=== PATIENT | female | born 1940 | race Caucasian/White ===

== ENCOUNTER 2017-11-02 10:36 | Inpatient (IN) ==
[2017-11-02] MEDS: *HR* HYDROcodone/Acet 5/325 mg TABLET PO PRN (19:39)
[2017-11-03] MEDS: *HR* HYDROcodone/Acet 5/325 mg TABLET PO PRN ×4 (01:57→21:00)
[2017-11-03 05:26] LABS: Basophils % 0.1 %; Hematocrit 26.8 % (35.3-44.9); Hemoglobin 8.5 g/dL (11.5-15.4); Immature Granulocytes % 0.8 % (0-4); Lymphocytes # 1.6 K/mcL (0.6-4.6); Lymphocytes % 13.5 %; Mean Corpuscular HGB Conc 31.7 g/dL (31.6-35.5); Mean Corpuscular Hemoglobin 29.3 pg (28.0-33.3); Mean Corpuscular Volume 92.4 fL (83.0-100.0); Monocytes # 0.6 K/mcL (0.0-1.3); Monocytes % 5.3 %; Neutrophils # 9.5 K/mcL (1.6-8.9); Platelet Count 306 K/mcL (140-400); Red Cell Distribution Width 15.1 % (11.5-14.5); Segmented Neutrophils % 80.3 %
[2017-11-03 05:30] LABS: INR 1.2; Prothrombin Time 13.4 Seconds (9.4-12.1)
[2017-11-03 05:33] LABS: Activated Partial Thrombo Time 29.6 Seconds (26.0-36.0)
[2017-11-03 05:47] LABS: BUN/Creatinine Ratio 27 (6-26); Blood Urea Nitrogen 22 mg/dL (7-20); Calcium 8.5 mg/dL (8.6-10.8); Carbon Dioxide 26 mEq/L (19-29); Chloride 106 mEq/L (98-109); Glucose 114 mg/dL (70-99); Osmolality,Calculated 290 (280-300); Potassium 4.6 mEq/L (3.5-4.5); Sodium 138 mEq/L (136-145); eGFR For African Americans > 60 (> 60); eGFR For Non-African Americans > 60 (> 60)
[2017-11-03] MEDS: Aspirin Enteric Coated 81 MG Tablet PO SCH (08:55)
[2017-11-03] MEDS: predniSONE 20 MG TABLET PO SCH (08:55)
[2017-11-03] MEDS: amLODIPine 5 MG TABLET PO SCH (08:56)
[2017-11-03] MEDS: Famotidine 20 MG TABLET PO SCH (08:56)
[2017-11-03] MEDS: Lisinopril 20 MG TABLET PO SCH (08:56)
[2017-11-03] MEDS: Isosorbide MONOnitrate (24 HR) 30 MG TAB.ER.24H PO SCH (08:57)
--- NOTE | 2017-11-03 13:12 | Internal Med History&Physical ---
Date of Encounter: 11/03/17 Time of Encounter: 13:00 Assessment and Plan (1) Physical deconditioning Current visit: Yes Status: Acute Continue working with our therapists. (2) PNA (pneumonia) Current visit: No Status: Acute Continue to complete prescribed course of Augmentin. Will add incentive spirometry. Qualifiers: Pneumonia type: due to Pneumococcus Laterality: right Lung location: lower lobe of lung Qualified Code(s): J13 - Pneumonia due to Streptococcus pneumoniae (3) Normocytic anemia Current visit: Yes Status: Acute Currently asymptomatic and not at transfusion threshold yet. - Will trend CBC. Will obtain FOBT. (4) HLD (hyperlipidemia) Current visit: Yes Status: Chronic Continue simvastatin. Qualifiers: Hyperlipidemia type: unspecified Qualified Code(s): E78.5 - Hyperlipidemia , unspecified (5) Essential hypertension Current visit: No Status: Chronic Continue lisinopril, Imdur, and metoprolol. (6) Afib Current visit: No Status: Chronic Continue metprolol and rivaroxaban. Qualifiers: Atrial fibrillation type: chronic Qualified Code(s): I48.2 - Chronic atrial fibrillation Internal Medicine - H&P: HPI Chief complaint: Physical deconditioning Admitted From: Hospital to Hospital Transfer Plans for Post Hospital Care: Home History of present illness: Ms. Rico is a 77 year old female transferred to form [facility] on 11/02/2017 for physical deconditioning after being admitted for PNA. At the time of this encounter, the patient feels much better and reports that her cough has significant improved. Patient report no fever, chills, CP, SOB, n/ v/d/c, dysuria, seizure, skin rash, bruising out of the ordinary, or bleeding symptoms. Past Med Surg Social Fam HX - Past Medical History Medical history: atrial fibrillation, coronary artery disease, CVA, hypertension , myocardial infarction Psychiatric history: no psych history - Past Surgical History Surgical History: carotid endarterectomy, orthopedic, other - Social History Smoking Status: Former smoker Smokeless Tobacco Status: No Alcohol use: none Drug use: none - Family History Father Hx Family Cardiac Disorders: Yes (Coronary artery disease) Internal Medicine - H&P: Meds Aspirin Enteric Coated [Aspirin EC] 81 mg PO DAILY 10/23/17 [History] HYDROcodone/Acet 5/325 mg [[place] 5-325 mg] 1 tab PO Q6H PRN 10/23/17 [History] Isosorbide MONOnitrate (24 HR) [Imdur] 30 mg PO DAILY 10/23/17 [History] Oxybutynin Chloride [Ditropan Xl] 5 mg PO DAILY 10/23/17 [History] Pravastatin Sodium [Pravachol] 20 mg PO DAILY 10/23/17 [History] Ranitidine HCl [Heartburn Relief] 150 mg PO BID 10/23/17 [History] Rivaroxaban [Xarelto] 15 mg PO 1700 #30 tablet 10/28/17 [Rx] amLODIPine [Norvasc] 10 mg PO DAILY #30 tablet 10/28/17 [Rx] predniSONE [PredniSONE] 40 mg PO DAILY@0800 #3 tablet 10/28/17 [Rx] Lisinopril [Zestril] 40 mg PO DAILY 10/29/17 [History] Metoprolol [Lopressor] 12.5 mg PO BID #30 tablet 11/02/17 [Rx] 3 Allergy/AdvReac Type Severity Reaction Status Date / Time No Known Allergies Allergy Verified 10/29/17 14:50 All Systems PM: A 10-system review of systems was performed and is negative for pertinent findings except as documented above in the HPI. Review of systems: 10 systems reviewed and (-) other than mentioned per HPI. - Constitutional Vitals: Temp Pulse Resp BP Pulse Ox 98.9 F 64 18 116/76 95 11/03/17 07:31 11/03/17 07:31 11/03/17 07:31 11/03/17 07:31 11/03/17 07:31 Exam: Gen: A&Ox3, NAD. HEENT: NCAT. Neck: No palpable lymphadenopathy or thyromegaly. CV: RRR, S1S2. 2/6, systolic murmur appreciated. Capillary refill < 2 seconds. Pulm: Adequate air exchange with mild, right-basilar crackles. No wheezing or rhonchi. Abd: (+)BS. NDNT. Neuro: Global weakness, otherwise non-focal. Skin: No rash. Ext: No pitting edema. Internal Med - H&P Results - Labs CBC & Chem 7: 11/03/17 05:15 11/03/17 05:07 Labs: Short CBC 11/03/17 Range/Units 05:15 WBC 11.8 H (4.3-11.1) K/mcL Hgb 8.5 L (11.5-15.4) g/dL Hct 26.8 L (35.3-44.9) % Plt Count 306 (140-400) K/mcL Neutrophils # 9.5 H (1.6-8.9) K/mcL BMP 11/03/17 05:07 Sodium 138 Potassium 4.6 H Chloride 106 Carbon Dioxide 26 BUN 22 H Creatinine 0.81 Glucose 114 H Calcium 8.5 L
[2017-11-03] MEDS: *HR* Rivaroxaban 15 MG TABLET PO SCH (17:34)
[2017-11-04 06:04] LABS: Basophils % 0.1 %; Hematocrit 27.7 % (35.3-44.9); Hemoglobin 8.9 g/dL (11.5-15.4); Immature Granulocytes % 0.7 % (0-4); Lymphocytes # 1.6 K/mcL (0.6-4.6); Lymphocytes % 11.4 %; Mean Corpuscular HGB Conc 32.1 g/dL (31.6-35.5); Mean Corpuscular Hemoglobin 29.9 pg (28.0-33.3); Mean Platelet Volume 11.4 fL (9.4-12.4); Monocytes # 0.7 K/mcL (0.0-1.3); Monocytes % 5.3 %; Platelet Count 329 K/mcL (140-400); Red Blood Count 2.98 M/mcL (3.82-4.97); Red Cell Distribution Width 15.3 % (11.5-14.5); Segmented Neutrophils % 82.5 %
[2017-11-04 06:05] LABS: Neutrophils # 11.4 K/mcL (1.6-8.9)
[2017-11-04] MEDS: *HR* HYDROcodone/Acet 5/325 mg TABLET PO PRN ×3 (06:59→19:03)
[2017-11-04] MEDS: Lisinopril 20 MG TABLET PO SCH (07:56)
[2017-11-04] MEDS: predniSONE 20 MG TABLET PO SCH (07:56)
[2017-11-04] MEDS: Isosorbide MONOnitrate (24 HR) 30 MG TAB.ER.24H PO SCH (07:56)
[2017-11-04] MEDS: Famotidine 20 MG TABLET PO SCH (07:56)
[2017-11-04] MEDS: Aspirin Enteric Coated 81 MG Tablet PO SCH (07:56)
[2017-11-04] MEDS: amLODIPine 5 MG TABLET PO SCH (07:56)
--- NOTE | 2017-11-04 12:14 | Internal Med Progress Note ---
Date of Encounter: 11/04/17 Time of Encounter: 12:00 - Assessment and plan (1) Physical deconditioning Current Visit: Yes Status: Acute Assessment and plan: Continue working with our therapists. (2) PNA (pneumonia) Current Visit: Yes Status: Acute Assessment and plan: Continue to complete prescribed course of Augmentin. Lungs are clear today. Continue incentive spirometry. Qualifiers: Pneumonia type: due to Pneumococcus Laterality: right Lung location: lower lobe of lung Qualified Code(s): J13 - Pneumonia due to Streptococcus pneumoniae (3) Normocytic anemia Current Visit: Yes Status: Acute Assessment and plan: Currently asymptomatic and not at transfusion threshold yet. - Will trend CBC. Will obtain FOBT. (4) HLD (hyperlipidemia) Current Visit: Yes Status: Chronic Assessment and plan: Continue simvastatin. Qualifiers: Hyperlipidemia type: unspecified Qualified Code(s): E78.5 - Hyperlipidemia , unspecified (5) Essential hypertension Current Visit: Yes Status: Chronic Assessment and plan: BP well-controlled. Continue lisinopril, Imdur, and metoprolol. (6) Afib Current Visit: Yes Status: Chronic Assessment and plan: Continue metprolol and rivaroxaban. Qualifiers: Atrial fibrillation type: chronic Qualified Code(s): I48.2 - Chronic atrial fibrillation (7) Chronic low back pain Current Visit: Yes Status: Chronic Assessment and plan: Will increase Mobile to 2 tabs q6h prn. Continue to monitor. Qualifiers: Back pain laterality: right Sciatica presence: unspecified whether sciatica present Qualified Code(s): M54.5 - Low back pain; G89.29 - Other chronic pain; G89.29 - Other chronic pain - Time Spent With Patient less than 15 minutes - Subjective Interval history: Reports having her chronic LBP and that the pain has not really been controlled by the currently ordered hydrocodone/acetaminophen. Upon further questioning, the patient states she takes 2 tabs of hydrocodone/acetaminophen q6h prn at home , but has only been getting 1 tab q6h prn here. - Constitutional Vitals: Temp Pulse Resp BP Pulse Ox 98.2 F 68 16 116/72 95 11/04/17 07:50 11/04/17 07:50 11/04/17 07:50 11/04/17 07:50 11/04/17 07:50 Exam: Gen: A&Ox3, NAD. HEENT: NCAT. Neck: No palpable lymphadenopathy or thyromegaly. CV: RRR, S1S2. 2/6, systolic murmur appreciated. Capillary refill < 2 seconds. Pulm: CTAB. Abd: (+)BS. NDNT. Neuro: Global weakness, otherwise non-focal. Skin: No rash. Ext: No pitting edema. Internal Medicine: Result - Labs CBC & Chem 7: 11/04/17 05:50 11/03/17 05:07 Labs: Short CBC 11/04/17 Range/Units 05:50 WBC 13.8 H (4.3-11.1) K/mcL Hgb 8.9 L (11.5-15.4) g/dL Hct 27.7 L (35.3-44.9) % Plt Count 329 (140-400) K/mcL Neutrophils # 11.4 H (1.6-8.9) K/mcL - ABG Interpretation ABG results: PT/INR, D-dimer PT 13.4 Seconds (9.4-12.1) H 11/03/17 05:07 Consult Discharge Plan - Plan Referrals: Gaby Santillan [Primary Care Provider] -
[2017-11-04] MEDS: *HR* Rivaroxaban 15 MG TABLET PO SCH (16:27)
[2017-11-05] MEDS: *HR* HYDROcodone/Acet 5/325 mg TABLET PO PRN ×4 (03:35→22:57)
[2017-11-05 05:22] LABS: Basophils % 0.1 %; Hematocrit 25.3 % (35.3-44.9); Immature Granulocytes % 0.7 % (0-4); Lymphocytes # 1.5 K/mcL (0.6-4.6); Lymphocytes % 11.2 %; Mean Corpuscular HGB Conc 31.6 g/dL (31.6-35.5); Mean Corpuscular Volume 94.8 fL (83.0-100.0); Mean Platelet Volume 11.5 fL (9.4-12.4); Monocytes # 0.8 K/mcL (0.0-1.3); Monocytes % 5.6 %; Platelet Count 306 K/mcL (140-400); Red Blood Count 2.67 M/mcL (3.82-4.97); Red Cell Distribution Width 15.5 % (11.5-14.5); Segmented Neutrophils % 82.4 %
[2017-11-05 05:27] LABS: Neutrophils # 11.2 K/mcL (1.6-8.9)
[2017-11-05 05:35] LABS: BUN/Creatinine Ratio 31 (6-26); Blood Urea Nitrogen 25 mg/dL (7-20); Calcium 8.4 mg/dL (8.6-10.8); Carbon Dioxide 28 mEq/L (19-29); Chloride 106 mEq/L (98-109); Glucose 117 mg/dL (70-99); Osmolality,Calculated 295 (280-300); Potassium 5.2 mEq/L (3.5-4.5); Sodium 140 mEq/L (136-145); eGFR For African Americans > 60 (> 60); eGFR For Non-African Americans > 60 (> 60)
[2017-11-05] MEDS: Lisinopril 20 MG TABLET PO SCH (08:09)
[2017-11-05] MEDS: predniSONE 20 MG TABLET PO SCH (08:09)
[2017-11-05] MEDS: Famotidine 20 MG TABLET PO SCH (08:10)
[2017-11-05] MEDS: amLODIPine 5 MG TABLET PO SCH (08:10)
[2017-11-05] MEDS: Isosorbide MONOnitrate (24 HR) 30 MG TAB.ER.24H PO SCH (08:10)
[2017-11-05] MEDS: Aspirin Enteric Coated 81 MG Tablet PO SCH (08:10)
--- NOTE | 2017-11-05 12:29 | Internal Med Progress Note ---
Date of Encounter: 11/05/17 Time of Encounter: 12:26 - Assessment and plan (1) PNA (pneumonia) Current Visit: Yes Status: Acute Assessment and plan: Continue to complete prescribed course of Augmentin. Lungs are clear, but noted slight bibasilar rales. He denies any dyspnea or chest discomforts. Continue incentive spirometry. Qualifiers: Pneumonia type: due to unspecified organism Laterality: right Lung location: lower lobe of lung Qualified Code(s): J18.1 - Lobar pneumonia, unspecified organism (2) Essential hypertension Current Visit: Yes Status: Chronic Assessment and plan: Vital signs are stable. We will continue with current medications (3) CVA (cerebral vascular accident) Current Visit: No Status: Chronic Assessment and plan: No acute issues. Patient states that CVA was remote and currently shows no neurological deficits secondary to CVA. Qualifiers: CVA mechanism: unspecified Qualified Code(s): I63.9 - Cerebral infarction, unspecified - Subjective Interval history: Patient appears relaxed and currently denies any shortness of breath or chest discomforts. Patient denies any fever/chills or productive cough. - Constitutional Vitals: Temp Pulse Resp BP Pulse Ox 98.4 F 69 16 121/66 94 11/05/17 07:36 11/05/17 07:36 11/05/17 07:36 11/05/17 07:36 11/05/17 07:36 General appearance: Present: A&O X 3, pleasant, no acute distress - Head Head exam: Present: atraumatic, normocephalic - Eye Eye exam: Present: PERRL, conjuntiva pink, sclera anicteric Pupils: Present: PERRL - Neck Neck exam general surgery: Present: supple, trachea midline. Absent: lymphadenopathy - Respiratory Respiratory exam: Present: rales. Absent: accessory muscle use, rhonchi, wheezes Additional comments: Lungs are clear throughout refills and diminished bases. Fine rales heard to posterior bibasilar noriega. Respiratory effort appears relaxed - Cardiovascular Cardiovascular exam: Present: RRR, +S1, +S2. Absent: diastolic murmur, gallop, rubs, systolic murmur - GI/Abdominal GI/Abdominal exam: Present: normal bowel sounds, soft, no peritoneal signs. Absent: distended, tenderness - Extremities Exam Extremities exam: Present: warm, radial pulses palpable and symmetrical. Absent : calf tenderness, cyanotic, pedal edema - Neurological Exam Neurological exam: Present: CN II-XII intact, oriented X3, no focal deficits. Absent: pronater drift, facial droop, speech deficit - Skin Skin exam: Present: dry, intact Internal Medicine: Result - Labs CBC & Chem 7: 11/05/17 04:55 11/05/17 04:55 Labs: Short CBC 11/05/17 Range/Units 04:55 WBC 13.6 H (4.3-11.1) K/mcL Hgb 8.0 L (11.5-15.4) g/dL Hct 25.3 L (35.3-44.9) % Plt Count 306 (140-400) K/mcL Neutrophils # 11.2 H (1.6-8.9) K/mcL BMP 11/05/17 04:55 Sodium 140 Potassium 5.2 H Chloride 106 Carbon Dioxide 28 BUN 25 H Creatinine 0.80 Glucose 117 H Calcium 8.4 L - ABG Interpretation ABG results: PT/INR, D-dimer PT 13.4 Seconds (9.4-12.1) H 11/03/17 05:07 Consult Discharge Plan - Plan Referrals: Gaby Santilaln [Primary Care Provider] -
[2017-11-05] MEDS: *HR* Rivaroxaban 15 MG TABLET PO SCH (16:54)
[2017-11-06] MEDS: *HR* HYDROcodone/Acet 5/325 mg TABLET PO PRN ×4 (05:22→23:12)
[2017-11-06] MEDS: Lisinopril 20 MG TABLET PO SCH (08:12)
[2017-11-06] MEDS: predniSONE 20 MG TABLET PO SCH (08:13)
[2017-11-06] MEDS: amLODIPine 5 MG TABLET PO SCH (08:13)
[2017-11-06] MEDS: Aspirin Enteric Coated 81 MG Tablet PO SCH (08:13)
[2017-11-06] MEDS: Famotidine 20 MG TABLET PO SCH (08:13)
[2017-11-06] MEDS: Isosorbide MONOnitrate (24 HR) 30 MG TAB.ER.24H PO SCH (08:15)
--- NOTE | 2017-11-06 13:32 | Internal Med Progress Note ---
Date of Encounter: 11/06/17 Time of Encounter: 13:29 - Assessment and plan (1) PNA (pneumonia) Current Visit: Yes Status: Acute Assessment and plan: Continue to complete prescribed course of Augmentin. Lungs are clear, but noted slight bibasilar rales. She denies any dyspnea or chest discomforts. Continue incentive spirometry. Continue on current medications and bronchodilators Qualifiers: Pneumonia type: due to unspecified organism Laterality: right Lung location: lower lobe of lung Qualified Code(s): J18.1 - Lobar pneumonia, unspecified organism (2) Essential hypertension Current Visit: Yes Status: Chronic Assessment and plan: Vital signs are stable. We will continue with current medications (3) CVA (cerebral vascular accident) Current Visit: No Status: Chronic Assessment and plan: No acute issues. Patient states that CVA was remote and currently shows no neurological deficits secondary to CVA. Qualifiers: CVA mechanism: unspecified Qualified Code(s): I63.9 - Cerebral infarction, unspecified - Subjective Interval history: Patient appears relaxed and currently denies any shortness of breath or chest discomforts. Patient denies any fever/chills or productive cough. Pt noted to be cachectic and continues on supplements per recommendations of dietary - Constitutional Vitals: Temp Pulse Resp BP Pulse Ox 98.8 F 79 16 107/65 94 11/06/17 07:00 11/06/17 07:00 11/06/17 07:00 11/06/17 07:00 11/06/17 07:00 General appearance: Present: A&O X 3, pleasant, no acute distress - Head Head exam: Present: atraumatic, normocephalic - Eye Eye exam: Present: PERRL, conjuntiva pink, sclera anicteric Pupils: Present: PERRL - Neck Neck exam general surgery: Present: supple, trachea midline. Absent: lymphadenopathy - Respiratory Respiratory exam: Present: CTAB. Absent: accessory muscle use, rales, rhonchi, wheezes - Cardiovascular Cardiovascular exam: Present: RRR, +S1, +S2. Absent: diastolic murmur, gallop, rubs, systolic murmur - GI/Abdominal GI/Abdominal exam: Present: normal bowel sounds, soft, no peritoneal signs. Absent: distended, tenderness - Extremities Exam Extremities exam: Present: warm, radial pulses palpable and symmetrical. Absent : calf tenderness, cyanotic, pedal edema - Neurological Exam Neurological exam: Present: CN II-XII intact, oriented X3, no focal deficits. Absent: pronater drift, facial droop, speech deficit - Skin Skin exam: Present: dry, intact Internal Medicine: Result - Labs CBC & Chem 7: 11/05/17 04:55 11/05/17 04:55 - ABG Interpretation ABG results: PT/INR, D-dimer PT 13.4 Seconds (9.4-12.1) H 11/03/17 05:07 Consult Discharge Plan - Plan Referrals: Ethan Celaya, TRANSPORT COORDINATOR [Advanced Practice Nurse] - 11/29/17 2:30 pm (KINDERGARTNER, cardio) Gaby Santillan [Primary Care Provider] -
[2017-11-06] MEDS: *HR* Rivaroxaban 15 MG TABLET PO SCH (16:52)
[2017-11-07] MEDS: *HR* HYDROcodone/Acet 5/325 mg TABLET PO PRN ×3 (05:39→18:39)
[2017-11-07] MEDS: Isosorbide MONOnitrate (24 HR) 30 MG TAB.ER.24H PO SCH (07:54)
[2017-11-07] MEDS: amLODIPine 5 MG TABLET PO SCH (07:54)
[2017-11-07] MEDS: Aspirin Enteric Coated 81 MG Tablet PO SCH (07:55)
[2017-11-07] MEDS: Lisinopril 20 MG TABLET PO SCH (07:55)
[2017-11-07] MEDS: predniSONE 20 MG TABLET PO SCH (07:55)
[2017-11-07] MEDS: Famotidine 20 MG TABLET PO SCH (07:55)
--- NOTE | 2017-11-07 14:02 | Internal Med Progress Note ---
Date of Encounter: 11/07/17 Time of Encounter: 13:59 - Assessment and plan (1) Essential hypertension Current Visit: Yes Status: Chronic Assessment and plan: Vital signs are stable. We will continue with current medications (2) Protein-calorie malnutrition, moderate Current Visit: No Status: Acute Assessment and plan: will order megace. monitor intake and weight. (3) Physical deconditioning Current Visit: Yes Status: Acute Assessment and plan: continue PT/OT. will follow progress. - Time Spent With Patient less than 15 minutes - Subjective Interval history: Participating well with therapy. Ambulated 300 feet today per physical therapist. Denies any pain. Discussed ways to increase calories. Patient willing to drink ensure. Discussed and will try megace to increase appetite. - Constitutional Vitals: Temp Pulse Resp BP Pulse Ox 98.3 F 59 15 101/51 94 11/07/17 07:40 11/07/17 07:40 11/07/17 07:40 11/07/17 07:40 11/07/17 07:40 General appearance: Present: A&O X 3, pleasant, no acute distress, underweight Exam: thin - Head Head exam: Present: atraumatic, normocephalic - Eye Eye exam: Present: PERRL, conjuntiva pink, sclera anicteric Pupils: Present: PERRL - Neck Neck exam general surgery: Present: supple, trachea midline. Absent: lymphadenopathy - Respiratory Respiratory exam: Present: CTAB. Absent: accessory muscle use, rales, rhonchi, wheezes - Cardiovascular Cardiovascular exam: Present: RRR, +S1, +S2, systolic murmur. Absent: diastolic murmur, gallop, rubs - GI/Abdominal GI/Abdominal exam: Present: normal bowel sounds, soft, no peritoneal signs. Absent: distended, tenderness - Extremities Exam Extremities exam: Present: warm, radial pulses palpable and symmetrical. Absent : calf tenderness, cyanotic, pedal edema - Neurological Exam Neurological exam: Present: CN II-XII intact, oriented X3, no focal deficits. Absent: pronater drift, facial droop, speech deficit - Skin Skin exam: Present: dry, intact Internal Medicine: Result - Labs CBC & Chem 7: 11/05/17 04:55 11/05/17 04:55 - ABG Interpretation ABG results: PT/INR, D-dimer PT 13.4 Seconds (9.4-12.1) H 11/03/17 05:07 Consult Discharge Plan - Plan Referrals: Ethan Celaya, CARBURETOR MECHANIC [Advanced Practice Nurse] - 11/29/17 2:30 pm (MOGUL OPERATOR, cardio) Gaby Santillan [Primary Care Provider] -
[2017-11-07] MEDS: *HR* Rivaroxaban 15 MG TABLET PO SCH (16:52)
[2017-11-07] MEDS: Megestrol Acetate 400 MG/10 ML UDC PO SCH (19:47)
[2017-11-08] MEDS: Megestrol Acetate 400 MG/10 ML UDC PO SCH ×2 (07:40→21:25)
[2017-11-08] MEDS: amLODIPine 5 MG TABLET PO SCH (07:41)
[2017-11-08] MEDS: predniSONE 20 MG TABLET PO SCH (07:41)
[2017-11-08] MEDS: Isosorbide MONOnitrate (24 HR) 30 MG TAB.ER.24H PO SCH (07:41)
[2017-11-08] MEDS: Aspirin Enteric Coated 81 MG Tablet PO SCH (07:41)
[2017-11-08] MEDS: Famotidine 20 MG TABLET PO SCH (07:41)
[2017-11-08] MEDS: *HR* HYDROcodone/Acet 5/325 mg TABLET PO PRN ×2 (07:42→16:23)
[2017-11-08] MEDS: Lisinopril 20 MG TABLET PO SCH (07:43)
--- NOTE | 2017-11-08 11:25 | Internal Med Progress Note ---
Date of Encounter: 11/08/17 Time of Encounter: 11:16 - Assessment and plan (1) Essential hypertension Current Visit: Yes Status: Chronic Assessment and plan: Vital signs are stable. We will continue with current medications (2) Protein-calorie malnutrition, moderate Current Visit: No Status: Acute Assessment and plan: megace started yesterday. monitor intake and weight. consult with aircraft engine installer (3) Physical deconditioning Current Visit: Yes Status: Acute Assessment and plan: continue PT/OT. will follow progress. - Time Spent With Patient less than 15 minutes - Subjective Interval history: Participating well with therapy. c/o low back pain, pain meds effective. states trying to eat more. megace started yesterday. pt drinking ensure. - Constitutional Vitals: Temp Pulse Resp BP Pulse Ox 98.4 F 75 16 95/60 96 11/08/17 07:00 11/08/17 07:00 11/08/17 07:00 11/08/17 07:00 11/08/17 07:00 General appearance: Present: A&O X 3, pleasant, no acute distress, underweight Exam: thin - Head Head exam: Present: atraumatic, normocephalic - Eye Eye exam: Present: PERRL, conjuntiva pink, sclera anicteric Pupils: Present: PERRL - Neck Neck exam general surgery: Present: supple, trachea midline. Absent: lymphadenopathy - Respiratory Respiratory exam: Present: CTAB. Absent: accessory muscle use, rales, rhonchi, wheezes - Cardiovascular Cardiovascular exam: Present: RRR, +S1, +S2, systolic murmur. Absent: diastolic murmur, gallop, rubs - GI/Abdominal GI/Abdominal exam: Present: normal bowel sounds, soft, no peritoneal signs. Absent: distended, tenderness - Extremities Exam Extremities exam: Present: warm, radial pulses palpable and symmetrical. Absent : calf tenderness, cyanotic, pedal edema - Neurological Exam Neurological exam: Present: CN II-XII intact, oriented X3, no focal deficits. Absent: pronater drift, facial droop, speech deficit - Skin Skin exam: Present: dry, intact Internal Medicine: Result - Labs CBC & Chem 7: 11/05/17 04:55 11/05/17 04:55 - ABG Interpretation ABG results: PT/INR, D-dimer PT 13.4 Seconds (9.4-12.1) H 11/03/17 05:07 Consult Discharge Plan - Plan Referrals: Ethan Celaya, TECHNICIAN TERMINAL AND REPEATER [Advanced Practice Nurse] - 11/29/17 2:30 pm (DIRECTOR OF WOMEN'S SERVICES, cardio) Gaby Santillan [Primary Care Provider] -
[2017-11-08] MEDS: *HR* Rivaroxaban 15 MG TABLET PO SCH (16:23)
[2017-11-09 05:11] LABS: Basophils % 0.1 %; Hematocrit 24.7 % (35.3-44.9); Hemoglobin 7.8 g/dL (11.5-15.4); Immature Granulocytes % 0.7 % (0-4); Lymphocytes # 1.3 K/mcL (0.6-4.6); Lymphocytes % 9.9 %; Mean Corpuscular HGB Conc 31.6 g/dL (31.6-35.5); Mean Corpuscular Hemoglobin 29.8 pg (28.0-33.3); Mean Corpuscular Volume 94.3 fL (83.0-100.0); Monocytes # 0.5 K/mcL (0.0-1.3); Monocytes % 3.4 %; Neutrophils # 11.6 K/mcL (1.6-8.9); Platelet Count 275 K/mcL (140-400); Red Blood Count 2.62 M/mcL (3.82-4.97); Red Cell Distribution Width 16.5 % (11.5-14.5); Segmented Neutrophils % 85.9 %
[2017-11-09 05:31] LABS: BUN/Creatinine Ratio 43 (6-26); Blood Urea Nitrogen 37 mg/dL (8-23); Calcium 8.4 mg/dL (8.6-10.3); Carbon Dioxide 29 mEq/L (23-29); Chloride 102 mEq/L (98-107); Glucose 127 mg/dL (70-105); Osmolality,Calculated 294 (280-300); Potassium 4.4 mEq/L (3.5-5.1); Sodium 137 mEq/L (136-145); eGFR For African Americans > 60 (> 60); eGFR For Non-African Americans > 60 (> 60)
[2017-11-09 07:25] VITALS: BP 103/64
[2017-11-09] MEDS: *HR* HYDROcodone/Acet 5/325 mg TABLET PO PRN (07:28)
[2017-11-09] MEDS: Lisinopril 20 MG TABLET PO SCH (09:30)
[2017-11-09] MEDS: Famotidine 20 MG TABLET PO SCH (09:30)
[2017-11-09] MEDS: amLODIPine 5 MG TABLET PO SCH (09:30)
[2017-11-09] MEDS: Isosorbide MONOnitrate (24 HR) 30 MG TAB.ER.24H PO SCH (09:30)
[2017-11-09] MEDS: Aspirin Enteric Coated 81 MG Tablet PO SCH (09:31)
[2017-11-09] MEDS: predniSONE 20 MG TABLET PO SCH (09:31)
[2017-11-09] MEDS: Megestrol Acetate 400 MG/10 ML UDC PO SCH (09:37)
--- NOTE | 2017-11-09 11:05 | Discharge Summary ---
Date of Encounter: 11/09/17 Time of Encounter: 11:02 - Discharge Diagnosis (1) PNA (pneumonia) Priority: Primary Status: Acute Qualifiers: Pneumonia type: due to unspecified organism Laterality: right Lung location: lower lobe of lung Qualified Code(s): J18.1 - Lobar pneumonia, unspecified organism (2) Essential hypertension Priority: Secondary Status: Chronic (3) CVA (cerebral vascular accident) Priority: Secondary Status: Chronic Qualifiers: CVA mechanism: unspecified Qualified Code(s): I63.9 - Cerebral infarction, unspecified - Discharge Medications Home Medications: Aspirin Enteric Coated [Aspirin EC] 81 mg PO DAILY 10/23/17 [History] HYDROcodone/Acet 5/325 mg [[place] 5-325 mg] 1 tab PO Q6H PRN 10/23/17 [History] Isosorbide MONOnitrate (24 HR) [Imdur] 30 mg PO DAILY 10/23/17 [History] Oxybutynin Chloride [Ditropan Xl] 5 mg PO DAILY 10/23/17 [History] Pravastatin Sodium [Pravachol] 20 mg PO DAILY 10/23/17 [History] Ranitidine HCl [Heartburn Relief] 150 mg PO BID 10/23/17 [History] Rivaroxaban [Xarelto] 15 mg PO 1700 #30 tablet 10/28/17 [Rx] amLODIPine [Norvasc] 10 mg PO DAILY #30 tablet 10/28/17 [Rx] predniSONE [PredniSONE] 40 mg PO DAILY@0800 #3 tablet 10/28/17 [Rx] Lisinopril [Zestril] 40 mg PO DAILY 10/29/17 [History] Metoprolol [Lopressor] 12.5 mg PO BID #30 tablet 11/02/17 [Rx] Allergies/Adverse Reactions: 3 Allergy/AdvReac Type Severity Reaction Status Date / Time No Known Allergies Allergy Verified 10/29/17 14:50 Date of admission: 11/02/17 18:41 Primary care physician: Gaby Santillan Consults: 11/02/17 18:44 Consult to Occupational Therapy [CONS] Routine Comment: Evaluate, develop and implement POC Reason for Consult: for evaluation and treatment Consult to Physical Therapy [CONS] Routine Comment: Evaluate, develop and implement POC Reason for Consult: for evaluation and treatment Consult to Recreational Therapy [CONS] Routine Comment: Evaluate, develop and implement POC Consult to Director Patient [CONS] Routine Reason for SW Consult: for discharge planning Consult to Speech Therapy [CONS] Routine Comment: Evaluate, develop and implement POC Reason for Consult: speech impairment Call Completed: Yes 11/05/17 14:18 consult to buffing machine operator [Consult to Nutrition] [CONS] Routine Comment: Consulting Provider: NUTRITION Reason for Dietary Consult: Diet Education 11/05/17 15:47 Consult to Speech Therapy [CONS] Routine Comment: Evaluate, develop and implement POC Reason for Consult: ? aspiration, decreased intake Time Notified: 15:00 Call Completed: Yes Discharging clinician: Aramis Doyle - Patient Status Disposition: Home Health Service Condition: Good Functional capacity at discharge: uses cane/walker Overall status at discharge: patient is progressing back to baseline - Discharge Instructions Instructions: Weakness (GEN) Follow Up With: Ethan Celaya CNP [Advanced Practice Nurse] - 11/29/17 2:30 pm (RACEBOOK WRITER, cardio) Gaby Santillan [Primary Care Provider] - 11/16/17 1:20 pm - Diet and Activity Activity: ambulate only with your walker, as per physical therapy Diet: advance to your usual diet Hospital course: Ms. Rico is a 77 year old female who is admitted to this facility for PT/OT and rehabilitation due to deconditioning secondary to COPD and pneumonia. She progressed well with PT/OT. No acute issues occurred during her hospitalization at this facility. Patient completed her antibiotics and remains without complaints of shortness of breath or chest discomforts. Patient continues to be in a weakened state, requiring assistance of a wheeled walker during ambulation. Patient is recommended to continue with physical therapy at home with home health nursing and/PT Time spent discussing smoking cessation with patient: 3 to 10 minutes - Time Spent with Patient Total time spent providing and/or coordinating discharge services: Less than 30 minutes - Constitutional Vitals: Temp Pulse Resp BP Pulse Ox 98.2 F 76 16 103/64 97 11/09/17 07:25 11/09/17 07:25 11/09/17 07:25 11/09/17 07:25 11/09/17 07:25 General appearance: Present: A&O X 3, pleasant, no acute distress, underweight - Head Head exam: Present: atraumatic, normocephalic - Eye Eye exam: Present: PERRL, conjuntiva pink, sclera anicteric Pupils: Present: PERRL - Neck Neck exam general surgery: Present: supple, trachea midline. Absent: lymphadenopathy - Respiratory Respiratory exam: Present: CTAB. Absent: accessory muscle use, rales, rhonchi, wheezes - Cardiovascular Cardiovascular exam: Present: RRR, +S1, +S2. Absent: diastolic murmur, gallop, rubs, systolic murmur - GI/Abdominal GI/Abdominal exam: Present: normal bowel sounds, soft, no peritoneal signs. Absent: distended, tenderness - Extremities Exam Extremities exam: Present: warm, radial pulses palpable and symmetrical. Absent : calf tenderness, cyanotic, pedal edema - Neurological Exam Neurological exam: Present: CN II-XII intact, oriented X3, no focal deficits. Absent: pronater drift, facial droop, speech deficit - Skin Skin exam: Present: dry, intact
--- NOTE | 2017-11-09 11:12 | Physician Discharge Referral ---
Home Health/Hosp Referral Info Transfer to: Home Health Provider in Charge Post Discharge: PCP - Diagnosis (1) PNA (pneumonia) Priority: Primary Status: Acute (2) Essential hypertension Priority: Secondary Status: Chronic (3) CVA (cerebral vascular accident) Priority: Secondary Status: Chronic - Respiratory Orders Smoking Cessation: Smoking cessation has been advised. For more information, call the [place] Tobacco Quit Line at 9-316-GOKE-NOW. - Diet/Nutrition Diet/Nutrition Orders: Regular - Activity Activity Orders: Up ad daphney, Walker - Services Needed Following services are medically necessary services: Nursing, Physical Therapy - Transfer Medications Home Medications: Aspirin Enteric Coated [Aspirin EC] 81 mg PO DAILY 10/23/17 [History] HYDROcodone/Acet 5/325 mg [B[place]anan 5-325 mg] 1 tab PO Q6H PRN 10/23/17 [History] Isosorbide MONOnitrate (24 HR) [Imdur] 30 mg PO DAILY 10/23/17 [History] Oxybutynin Chloride [Ditropan Xl] 5 mg PO DAILY 10/23/17 [History] Pravastatin Sodium [Pravachol] 20 mg PO DAILY 10/23/17 [History] Ranitidine HCl [Heartburn Relief] 150 mg PO BID 10/23/17 [History] Rivaroxaban [Xarelto] 15 mg PO 1700 #30 tablet 10/28/17 [Rx] amLODIPine [Norvasc] 10 mg PO DAILY #30 tablet 10/28/17 [Rx] predniSONE [PredniSONE] 40 mg PO DAILY@0800 #3 tablet 10/28/17 [Rx] Lisinopril [Zestril] 40 mg PO DAILY 10/29/17 [History] Metoprolol [Lopressor] 12.5 mg PO BID #30 tablet 11/02/17 [Rx] Allergies/Adverse Reactions: 3 Allergy/AdvReac Type Severity Reaction Status Date / Time No Known Allergies Allergy Verified 10/29/17 14:50 Certification: Further, I certify that my clinical findings support that this patient is homebound (i.e. absences from home require considerable and taxing effort and are for medical reasons or holiness services or infrequently or short duration when for other reasons) because: Homebound Reason: Patient requires assistance of a person or device to safely leave home, Leaving home requires considerable and taxing effort due to condition, Severity of cardiac or pulmonary status limits activity tolerance Attestation: My signature below is to certify that this patient is under my care and that I, or nurse practitioner, or a physician's phlebotomist medical lab assistant working with me, has a face-to -face encounter with this patient.
== END 2017-11-09 11:40 | disposition home health service (06) | DRG 945 ==
LOC: INPGRE 18:41
PROVIDERS: ADMIT Internal Medicine; ATTEND Internal Medicine